=== PATIENT | female | born 1955 | race Caucasian/White ===

== ENCOUNTER 2016-10-18 12:04 | Outpatient (CLI) | payer BC, OTHER ==
[2016-10-18 12:59] LABS: #Basophils 0.1 thou/uL (0.0-0.2); #Eosinphils 0.2 thou/uL (0.0-0.7); #Lymphocytes 1.5 thou/uL (1.20-3.40); #Monocytes 0.8 thou/uL (0.11-0.59); #Neutrophils 8.6 thou/uL (1.40-6.50); %Basophils 0.7 % (0.0-1.0); %Eosinophils 1.4 % (0.0-10.0); %Lymphocytes 13.6 % (21.0-51.0); %Monocytes 7.4 % (0.0-10.0); %Neutrophils 76.9 % (42.0-75.0); Hemoglobin 14.8 g/dL (12.0-16.0); Mean Corpuscular Hemoglobin 31.2 pg (27.0-31.0); Mean Corpuscular Volume 91.7 fl (81.0-99.0); Mean Platelet Volume 7.8 fL (7.4-10.4); Platelet Count 304 thou/uL (130-400); RBC Distribution Width 12.6 % (11.5-14.5); Red Blood Cell (RBC) Count 4.75 mill/uL (4.20-5.40); White Blood Cell (WBC) Count 11.2 thou/uL (4.8-10.8)
[2016-10-18 13:04] LABS: ALT (SGPT) 23 U/L (0-55); AST (SGOT) 19 U/L (5-34); Albumin 4.2 g/dL (3.5-5.0); Alkaline Phosphatase 108 U/L (40-150); Anion Gap 15 mmol/L (10-20); BUN (Urea Nitrogen) 10 mg/dL (9.8-20.1); Bilirubin, Total 0.7 mg/dL (0.2-1.2); Calc. Creatinine Clearance 0 mL/min (70-130); Calcium 9.6 mg/dL (7.8-10.44); Carbon Dioxide 26 mmol/L (22-29); Cardiac Risk 2.7 (Less than 4.5); Chloride 105 mmol/L (98-107); Cholesterol 237 mg/dL (< 200 Desired); Estimated GFR-MDRD 60; Globulin 2.5 g/dL (2.4-3.5); Glucose 97 mg/dL (70-105); HDL Cholesterol 89 mg/dL (>60 Neg Risk); LDL Cholesterol, Calculated 133 mg/dL; Potassium 4.6 mmol/L (3.5-5.1); Protein, Total 6.7 g/dL (6.0-8.3); Sodium 141 mmol/L (136-145); Triglycerides 74 mg/dL (Less than 150)
== END 2016-10-18 12:05 | disposition home or self-care (01) ==
LOC: HPCALD 12:04
PROVIDERS: ATTEND Family Medicine
DX: Z00.01 Encounter for general adult medical examination with abnormal findings (principal); Z13.6 Encounter for screening for cardiovascular disorders
CPT/HCPCS: 36415; 80053; 80061; 84443; 85025

== ENCOUNTER 2016-11-09 09:14 | Outpatient (CLI) | payer BC ==
--- NOTE | 2016-11-09 17:57 | RAD ---
LUMBAR SPINE THREE VIEWS 11/09/16 A degenerated disc is seen at L4-L5 with disc space narrowing, osteophytes and a vacuum phenomenon. Very slight narrowing is probably present at L5-S1 as well. 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 No fractures were seen. the SI joints were symmetrical. IMPRESSION: Degenerative disc changes and other degenerative changes as noted above. L4-L5 and L5-S1 are the mos t affected. MRI could be useful. POS: HOME
--- NOTE | 2016-11-09 17:58 | RAD ---
RIGHT HIP TWO VIEWS 11/09/16 The joint space is really normal in width and unremarkable. The articular surfaces are smooth. I am not impressed by any abundance of degenerative change. No fracture or area of bony destruction was s een. IMPRESSION: No acute findings. POS: HOME
== END 2016-11-09 09:15 | disposition home or self-care (01) ==
LOC: BURRAD 09:14
PROVIDERS: ATTEND Family Medicine
DX: M54.32 Sciatica, left side (principal); M16.11 Unilateral primary osteoarthritis, right hip; M51.37 Other intervertebral disc degeneration, lumbosacral region; M47.817 Spondylosis without myelopathy or radiculopathy, lumbosacral region
CPT/HCPCS: 72100

== ENCOUNTER 2016-11-09 09:45 | Outpatient (CLI) | payer BC ==
[2016-11-09 10:59] LABS: #Basophils 0.1 thou/uL (0.0-0.2); #Eosinphils 0.3 thou/uL (0.0-0.7); #Lymphocytes 1.7 thou/uL (1.20-3.40); #Monocytes 0.7 thou/uL (0.11-0.59); #Neutrophils 6.5 thou/uL (1.40-6.50); %Eosinophils 3.1 % (0.0-10.0); %Lymphocytes 17.9 % (21.0-51.0); %Monocytes 7.2 % (0.0-10.0); %Neutrophils 70.8 % (42.0-75.0); Hemoglobin 14.2 g/dL (12.0-16.0); Mean Corpuscular HGB CONC 33.4 g/dL (32.0-36.0); Mean Corpuscular Hemoglobin 30.8 pg (27.0-31.0); Mean Corpuscular Volume 92.1 fl (81.0-99.0); Platelet Count 285 thou/uL (130-400); RBC Distribution Width 12.3 % (11.5-14.5); Red Blood Cell (RBC) Count 4.61 mill/uL (4.20-5.40); White Blood Cell (WBC) Count 9.2 thou/uL (4.8-10.8)
== END 2016-11-09 09:46 | disposition home or self-care (01) ==
LOC: HPCALD 09:45
PROVIDERS: ATTEND Family Medicine
DX: D72.829 Elevated white blood cell count, unspecified (principal)
CPT/HCPCS: 36415; 85025